=== PATIENT | male | born 1965 | race Caucasian/White ===

== ENCOUNTER 2020-09-24 02:36 | Observation (INO) | payer BC, SELFPAY ==
[2020-09-24] VITALS (28 sets, daily range): BP systolic 105–139; BP diastolic 69–93; PULSE 69–93; RESP 14–18; TEMP -17.7–36.7; O2SAT 94–99; BMI 22.4
--- NOTE | 2020-09-24 | IR_ITS ---
APPROVED REPORT Patient Location: [facility] Computer [employer] Software Architect: SCOTT Merlos RT (R) PROCEDURES Left heart catheterization Left ventriculogram Selective coronary angiogram Drug-eluting stent deployment into the left main artery Drug-eluting stent deployment in the proximal and mid LAD INDICATION Acute anterior ST elevation myocardial infarction, Coronary artery disease Informed consent was obtained prior to the procedure. COMPLICATIONS none Estimated Blood Loss: less than 10 mls TECHNIQUE One percent lidocaine used to anesthetize the right anterior aspect of the wrist. The right radial artery was accessed via the Seldinger technique. A 6 [place] sheath was placed in the right radial artery. 2.5 mg of verapamil, 800 mcg of nitroglycerin, 1mg Lidocaine and therapeutic Heparin were given through the arterial sheath. Patient was actually loaded in the emergency department with therapeutic heparin as well as Brilinta 180 mg. The Poppa catheter was used to perform left heart catheterization left ventriculogram and selective coronary angiogram. With the catheter in the left main artery a Choice PT extra-support wire was used to traverse the stenosis in the distal left main artery. A 3 mm x 20 mm balloon was used to predilate the stenosis. Following this a 3 mm x 18 mm resolute ebenezer stent was placed in the proximal left main extending into the proximal portion of the LAD and deployed initially at 20 desean. Following this a 3 mm x 38 mm resolute Ebenezer stent was then placed through the proximal to mid LAD and deployed at 16 desean. The balloon was brought back and deployed at 24 desean in the left main artery and proximal LAD. ARIK-3 flow was present before and after the procedure. After achieving excellent angiographic results the apparatus was removed the sheath was removed good hemostasis was achieved using TR banding patient was transferred to the postop holding area in stable condition ANGIOGRAPHIC RESULTS The left main artery Has a distal highly eccentric greater than 90% stenosis The left anterior descending artery Has an ostial greater than 90% stenosis followed by proximal multiple 70% stenoses. The circumflex artery Is nondominant and has proximal 10 to 20% smooth stenosis The right coronary artery Is a large dominant vessel and has proximal hazy 30 to 40% stenoses with distal and diffuse 30% stenoses through the mid and distal segment. The LOERA ventriculogram reveals Reduced at 45% with anterior wall hypokinesis The left ventricular end-diastolic pressure 20 mmHg IMPRESSION Critical distal left main stenosis combined with ostial and proximal LAD stenosis as described above Successful reconstruction of a critically diseased distal left main artery extending into the LAD with all lesions reduced to 0% with 2 drug-eluting stents in a contiguous manner Reduced ejection fraction with regional wall motion abnormality which is most likely stunning and should improve over time Elevated LVEDP Moderate diffuse disease throughout the large dominant right coronary PLAN 1. Brilinta 90 mg twice daily plus aspirin 81 mg daily 2. LDL of 55 to be achieved with high intensity statin. Will start Lipitor 80 mg daily 3. Once hemodynamically stable low-dose bisoprolol plus DOMINGA inhibitor 4. Avoidance of all tobacco products 5. Cardiac rehabilitation 6. Monitor on telemetry Electronically signed by : Frankie Norton, 09/24/2020 04:02:04
--- NOTE | 2020-09-24 02:28 | ECG_ITS ---
APPROVED REPORT Exam: Resting ECG HR:88 bpm ECG Measurements Heart Rate 88 AXES WI 166 P 62 QRSd 94 QRS 30 QT 384 T -38 QTc 464 Conclusion Sinus rhythm with premature atrial complexes Septal infarct, age undetermined Marked ST abnormality, possible inferior subendocardial injury Abnormal ECG Electronically signed by : Duke Watkins, 09/25/2020 19:57:59
--- NOTE | 2020-09-24 02:39 | HMH.EDCP ---
ED Disposition Clinical Impression: Hypokalemia ST elevation myocardial infarction (STEMI) Qualifiers: Involved coronary artery: unspecified coronary artery Qualified Code(s): I21.3 - ST elevation (STEMI) myocardial infarction of unspecified site Disposition: Admitted As Inpatient Condition on Discharge: Critical - Critical Care Critical Care Time: No Attestation: On , the high probability of a clinically significant, sudden or life threatening deterioration of the following system(s) required my full and direct attention, intervention and personal management. The time I documented below is in addition to time spent performing reported procedures but includes the following listed in this critical care notation. Medical Decision Making - Medical Records Medical records reviewed: Yes: I reviewed the patient's medical records. - Stephen Inquiry Pt receiving controlled substance: No Vital Signs: 09/24/20 02:36 Pulse Rate [Left Radial] 71 Respiratory Rate 16 Blood Pressure [Right Arm] 122/86 Blood Pressure Mean [Right Arm] 98 Blood Pressure Source [Right Arm] Automatic Cuff Blood Pressure Position [Right Arm] Sitting 02 Sat by Pulse Oximetry 99 Oxygen Delivery Method Room Air - Lab Data Lab results reviewed: Yes: I reviewed the patient's lab results. Lab Results 09/24/20 02:40: WBC 13.5 H, RBC 5.54, Hgb 16.0, Hct 48.2, MCV 87.0, MCH 29.0, MCHC 33.3, RDW 13.5, Plt Count 236, MPV 9.4, Neut % (Auto) 45.3, Lymph % (Auto) 44.6, [place] % (Auto) 6.6, Eos % (Auto) 2.8, Baso % (Auto) 0.8, Neut # (Auto) 6.1, Lymph # (Auto) 6.0 H, [place] # (Auto) 0.9, Eos # (Auto) 0.4, Baso # (Auto) 0.1 09/24/20 02:40: Sodium 140, Potassium 2.8 L*, Chloride 101, Carbon Dioxide 29, Anion Gap 12.8, BUN 21 H, Creatinine 1.20, Estimated Creat Clear 78, Estimated GFR 63, Est GFR ( Amer) 76, Glucose 121 H, Calcium 9.2, Troponin I < 0.01, NT-Pro-B Natriuret Pep 32.9 Result diagrams: 09/24/20 02:40 09/24/20 02:40 Orders (Tests/Meds): ED MEDICATIONS Discontinued Medications Generic Name Dose Route Start Last Admin Trade Name Kameron PRN Reason Stop Dose Admin Aspirin 324 mg 09/24/20 02:42 09/24/20 02:49 Aspirin 81mg Chewable Tablet PO 09/24/20 02:43 324 mg ONCE ONE Administration Heparin Sodium (Porcine) 7,900 unit 09/24/20 02:42 09/24/20 02:48 Heparin Sodium 5,000 Unit/Ml Vial 100 unit/kg (7900 unit) 09/24/20 02:43 7,900 unit IV Administration ONCE ONE Ticagrelor 180 mg 09/24/20 02:42 09/24/20 02:49 Ticagrelor 90mg Tablet PO 09/24/20 02:43 180 mg ONCE ONE Administration ORDERS Category Date Time Status Chest XR -- portable [XR chest portable] Stat Exams 09/24/20 02:40 Taken Covid-19 IgG/IgM ([facility]) Stat Lab 09/24/20 02:40 Received Troponin I Q3H Lab 09/24/20 05:45 Ordered Troponin I Q3H Lab 09/24/20 08:45 Ordered - Radiology Data #1 Image(s): Chest Image Reviewed: Yes I reviewed the patient's radiology image Preliminary Findings: Normal/NAD - ECG Data Tracing #1 Normal Sinus Rhythm: Yes Ischemic changes: acute STEMI, ST elevation - Physician Consults Physician Consulted: cedric Reason -: Pt condition Additional Consult: tamara Reason -: Admission Chest Pain HPI - General Chief Complaint: Chest Pain Stated Complaint: CHEST PAIN Time Seen by Provider: 09/24/20 02:40 Mode of Arrival: Wheelchair Source of Information: Patient, Spouse, Medical Record Limitations: No Limitations Description of Symptoms (Recalled from ER Triage Doc. by RN): PT ASSISTED OUT OF CAR BY STAFF. PT COMPLAINS OF CHEST PAIN FOR THE LAST FEW HOURS THAT RADIATES DOWN HIS LEFT ARM. 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
--- NOTE | 2020-09-24 02:40 | XR_ITS ---
PROCEDURE: XR CHEST PORTABLE CLINICAL HISTORY: chest pain COMPARISON: No exams were available for comparison FINDINGS: Mild cardiomegaly without failure. The lungs are clear without infiltrates, suspicious nodules, or pleural effusions. No acute bony abnormalities. IMPRESSION: Mild cardiomegaly negative Dictated by: Ayad Genao MD 09/24/2020 05:31 Ayad Genao MD in OV 09/24/2020 05:31
--- NOTE | 2020-09-24 02:42 | PC.NURSE ---
[id number] STEMI alert called. cedric paged
--- NOTE | 2020-09-24 02:45 | PC.NURSE ---
cath team paged
--- NOTE | 2020-09-24 02:46 | PC.NURSE ---
consent obtained, signed per
--- NOTE | 2020-09-24 02:50 | PC.NURSE ---
pt to laboratory worker via engine house helper and social media assistant; on monitor/pads; called and spoke with gui, changed to anabelle
[2020-09-24 03:17] LABS: Anion Gap 12.8 mEq/L (5-15); Blood Urea Nitrogen 21 mg/dl (9-20); Calcium 9.2 mg/dl (8.4-10.2); Carbon Dioxide 29 mmol/L (22.0-30.0); Chloride 101 mmol/L (98-107); Creatinine Clearance Estimated 78 mL/min (50-200); Estimated Glomerular Filt Rate 63 ml/min (>60); GFR (African American) 76 ML/MIN (>60); Glucose 121 mg/dl (74-100); Sodium 140 mmol/L (136-145)
[2020-09-24 03:19] LABS: Potassium 2.8 mmoL/L (3.5-5.1)
--- NOTE | 2020-09-24 03:19 | PC.NURSE ---
K+ 2.[address] Stack
[2020-09-24 03:23] LABS: Basophils # 0.1 K/mm3 (0-0.2); Basophils % 0.8 % (0.1-2.0); Eosinophils # 0.4 K/mm3 (0.0-0.4); Eosinophils % 2.8 % (0.1-12.0); Hematocrit 48.2 % (42.0-52.0); Lymphocytes % 44.6 % (10-50); Mean Corpuscular HGB Conc 33.3 g/dL (31.8-35.4); Mean Platelet Volume 9.4 fl (7.4-10.4); Monocytes # 0.9 K/mm3 (0.1-1.0); Monocytes % 6.6 % (1.7-9.3); Neutrophils # 6.1 K/mm3 (1.8-7.8); Neutrophils % 45.3 % (37.0-80.0); Platelet Count 236 K/mm3 (142-424); Red Blood Count 5.54 M/mm3 (4.60-6.20); Red Cell Distribution Width 13.5 % (11.5-17.5); White Blood Count 13.5 K/mm3 (4.8-10.8)
[2020-09-24 03:29] LABS: NT Pro Brain Natriuretic Pep. 32.9 pg/mL (0-125); Troponin I < 0.01 ng/ml (0.00-0.034)
[2020-09-24 03:35] LABS: Coronavirus 19 IgG Antibody Negative (Negative); Coronavirus 19 IgM Antibody Negative (Negative)
[2020-09-24 04:02] LABS: CATHL Activated Clotting Time > 400 SEC (74-125)
--- NOTE | 2020-09-24 04:37 | PC.NURSE ---
PT ARRIVED TO THE FLOOR VIA STRETCHER FROM FINISHING MACHINE TENDER WITH STAFF AT [id number]
--- NOTE | 2020-09-24 06:55 | PC.NURSE ---
Pt has been resting in bed. Tracelet remains in place. No hematoma noted. Has tolerated well. Pt has c/o some slight discomfort to chest x1 since arrival to floor. Education given on reperfusion. VSS at this time. Pt has used urinal. Call light within reach. Family at bedside. No other concerns at this time. Will continue to monitor.
[2020-09-24 07:04] LABS: Basophils # 0.1 K/mm3 (0-0.2); Basophils % 0.4 % (0.1-2.0); Eosinophils # 0.1 K/mm3 (0.0-0.4); Eosinophils % 0.9 % (0.1-12.0); Hematocrit 47.2 % (42.0-52.0); Hemoglobin 15.8 g/dL (14.1-18.0); Lymphocytes # 2.1 K/mm3 (0.7-4.5); Mean Corpuscular HGB Conc 33.4 g/dL (31.8-35.4); Mean Corpuscular Hemoglobin 29.3 pg (27.0-31.2); Mean Corpuscular Volume 87.7 fl (80-94); Mean Platelet Volume 9.4 fl (7.4-10.4); Monocytes # 0.5 K/mm3 (0.1-1.0); Neutrophils # 9.4 K/mm3 (1.8-7.8); Neutrophils % 77.7 % (37.0-80.0); Platelet Count 190 K/mm3 (142-424); Red Blood Count 5.38 M/mm3 (4.60-6.20); Red Cell Distribution Width 13.5 % (11.5-17.5); White Blood Count 12.1 K/mm3 (4.8-10.8)
[2020-09-24 07:10] LABS: Chloride 104 mmol/L (98-107); Sodium 139 mmol/L (136-145)
[2020-09-24 07:11] LABS: Potassium 3.9 mmoL/L (3.5-5.1)
[2020-09-24 07:13] LABS: Anion Gap 9.9 mEq/L (5-15); Blood Urea Nitrogen 20 mg/dl (9-20); Carbon Dioxide 29 mmol/L (22.0-30.0); Creatinine Clearance Estimated 94 mL/min (50-200); Estimated Glomerular Filt Rate 78 ml/min (>60); GFR (African American) 94 ML/MIN (>60)
[2020-09-24 07:14] LABS: Calcium 9.3 mg/dl (8.4-10.2); Chol/HDL Ratio 6.4 (1-3.5); Cholesterol 237 mg/dl (140-200); Glucose 110 mg/dl (74-100); HDL Cholesterol 37 mg/dl (40-60); Magnesium 2.1 mg/dl (1.6-2.3); Triglycerides 86 mg/dl (30-150); VLDL Cholesterol 17 mg/dL (0-40)
[2020-09-24 07:25] LABS: Direct LDL Cholesterol 152.62 mg/dL (100-129)
--- NOTE | 2020-09-24 09:18 | HMH.HP ---
*Admission Date: 09/24/20 *Chief complaint: chest pain *History of present illness: Mr. Goodwin is a 55-year-old relatively healthy male who states he has had indigestion for the past few months. His states he did complain about chest pain a few weeks ago, but it resolved on its own. At 2 AM last night he began having indigestion. He took some Tums and it did not improve. He then began having left-sided chest pain that radiated down his left arm. The pain was steady and he became weak and diaphoretic. He states he was nauseated as well. His tried to get into the car and he fell down a few times. She managed to get him in the car and transported to the emergency room where he was evaluated and was having a STEMI. He was taken emergently to the [facility] and 2 stents were placed. The patient is feeling much better this morning. He states he has only slight pressure at the very top of his chest. All other symptoms have resolved. [facility] History I have reviewed the patient's past medical history: Yes Medical History: Denies:: Cancer, Diabetes Mellitus Type 1, Diabetes Mellitus Type 2, MRSA *Have you ever received a pneumonia vaccine?: No *Have you received a flu vaccine this season?: Yes Laterality Cases: Bilateral: Tonsillectomy Other Surgeries: Yes: Other (vasectomy) Amputation: No - *Social History Last grade of school completed: GED Smoking Status: Former smoker Tobacco Type: cigarettes # Packs/Day (cigarettes): 1 Alcohol Intake: never *Occupational Status:: employed *Travel in the last 8 weeks: Inside the [facility] Family Hx:: Cancer, Coronary Artery Disease, Heart Attack, Hyperlipidemia, Hypertension Review of Systems - Constitutional Reports weakness, Denies fever(s) - Eyes Denies blurry vision, Denies double vision - ENT Denies nasal congestion, Denies sore throat - *Cardiovascular Reports chest pain, Reports radiating jaw, neck or arm pain, Denies shortness of breath (I have no idea always have to call and have them transfer me because it is ) - *Respiratory Denies cough, Denies shortness of breath - *Gastrointestinal Reports nausea, Denies abdominal pain, Denies loose stools, Denies vomiting - *Genitourinary Denies difficulty urinating, Denies painful urination - *Musculoskeletal Denies joint pain - *Neurologic Reports weakness, Denies headache(s), Denies seizure-like activity, Denies dizziness Meds Home Medications Medication Instructions Recorded Confirmed Type No Known Home Medications 09/24/20 09/24/20 History Allergies Allergy/AdvReac Type Severity Reaction Status Date / Time No Known Allergies Allergy Verified 09/24/20 02:39 Exam Vital signs and Labs for Last 24 Hours: Temp Pulse Resp BP Pulse Ox 97.7 F 76 16 135/84 98 09/24/20 06:05 09/24/20 07:05 09/24/20 07:05 09/24/20 07:05 09/24/20 07:05 Laboratory Results - last 24 hr 09/24/20 02:40: WBC 13.5 H, RBC 5.54, Hgb 16.0, Hct 48.2, MCV 87.0, MCH 29.0, MCHC 33.3, RDW 13.5, Plt Count 236, MPV 9.4, Neut % (Auto) 45.3, Lymph % (Auto) 44.6, [place] % (Auto) 6.6, Eos % (Auto) 2.8, Baso % (Auto) 0.8, Neut # (Auto) 6.1, Lymph # (Auto) 6.0 H, [place] # (Auto) 0.9, Eos # (Auto) 0.4, Baso # (Auto) 0.1 09/24/20 02:40: Sodium 140, Potassium 2.8 L*, Chloride 101, Carbon Dioxide 29, Anion Gap 12.8, BUN 21 H, Creatinine 1.20, Estimated Creat Clear 78, Estimated GFR 63, Est GFR ( Amer) 76, Glucose 121 H, Calcium 9.2, Troponin I < 0.01, NT-Pro-B Natriuret Pep 32.9 09/24/20 02:40: SARS-CoV-2 IgG Ab (Rapid) Negative, SARS-CoV-2 IgM Ab (Rapid) Negative 09/24/20 03:27: Activated Clotting Time > 400 H* 09/24/20 06:40: WBC 12.1 H, RBC 5.38, Hgb 15.8, Hct 47.2, MCV 87.7, MCH 29.3, MCHC 33.4, RDW 13.5, Plt Count 190, MPV 9.4, Neut % (Auto) 77.7, Lymph % (Auto) 17.0, [place] % (Auto) 4.0, Eos % (Auto) 0.9, Baso % (Auto) 0.4, Neut # (Auto) 9.4 H, Lymph # (Auto) 2.1, [place] # (Auto) 0.5, Eos # (Auto) 0.1, Baso # (Auto) 0.1 09/24/
--- NOTE | 2020-09-24 12:34 | HMH.PHAVTE ---
[facility] Pharmacy VTE Monitoring - Patient Demographics Admission date: 09/24/20 Report Date: 09/24/20 Time: 12:34 Allergies/Adverse Reactions: Patient Allergies No Known Allergies Allergy (Verified 09/24/20 02:39) Height: 1.88 m Weight: 79.379 kg Patient Problems: Current Active Problems ST elevation myocardial infarction (STEMI) (Acute) Hypokalemia (Acute) - VTE Risk Labs: VTE Related Lab Results Hgb 15.8 g/dL (14.1-18.0) 09/24/20 06:40 Hct 47.2 % (42.0-52.0) 09/24/20 06:40 Plt Count 190 K/mm3 (142-424) 09/24/20 06:40 BUN 20 mg/dl (9-20) 09/24/20 06:40 Creatinine 1.00 mg/dl (0.66-1.25) 09/24/20 06:40 Estimated Creat Clear 94 mL/min (50-200) 09/24/20 06:40 Was VTE Risk Assessment Performed: Yes VTE Score: 2 VTE Risk Level: Low Risk - Prophylaxis VTE Prophylaxis Ordered?: Yes Types of VTE Prophylaxis: TEDS Knee High Location of Applied Device: Bilateral Lower Extremeties
--- NOTE | 2020-09-24 19:40 | PC.NURSE ---
patient did well this shift. has had no complaints besides ocassional chest discomfort that goes away. telfa and tegaderm applied to cath site with no signs of bleeding or hematomas. educated on brilinta and post cath care. first 30 days of brilinta given to patient to take home. vitals have been stable. ambulates in room independently.
[2020-09-25] VITALS (13 sets, daily range): BP systolic 115–159; BP diastolic 73–99; PULSE 70–88; RESP 13–19; TEMP 36.4–37.3; O2SAT 95–98; BMI 23.3
--- NOTE | 2020-09-25 04:12 | PC.NURSE ---
Patient resting at this time. Has had no complaints of pain or shortness of air. ALert and orientd x4. Standby assistance to the bathroom. Normal sinus rhythm rate 70-80s and blood pressure stable . Had heart cath today. Two stents to the proximal LAD, right radial site with no signs of hematoma or bleeding. Dressing CDI. Pulses good and capillary refill brisk. Lungs clear on room air, no cough noted. Skin intact except for right radial No edema noted, day hose on bilateral LE. Patient instructed to call for assistance. Call light within reach.
--- NOTE | 2020-09-25 10:55 | HMH.ACPN2 ---
Internal Medicine - PN: Subj *Date: 09/25/20 *Time: 10:55 Interval history: He feels okay. He reports some mild chest pain. I listen to his chest as he was coming back from the bathroom. Heart rate was regular. I heard some left basilar rales. I spoke to Dr. Norton regarding distal medications. We will initiate bisoprolol and ramipril at a low dose. I would prefer to watch him today and plan to discharge him tomorrow if he is stable. Exam Vital signs and Labs for Last 24 Hours: Temp Pulse Resp BP Pulse Ox 98.2 F 72 16 115/73 96 09/25/20 08:00 09/25/20 06:00 09/25/20 06:00 09/25/20 06:00 09/25/20 06:00 I & O for Last 24 hours: Intake & Output 09/22/20 09/23/20 09/24/20 09/25/20 11:59 11:59 11:59 11:59 Intake Total 3981 / 3981 Output Total 675 / 675 750 / 750 Balance -675 / -675 3231 / 3231 Weight 175 lb 181 lb 6 oz - Constitutional no acute distress - *Routine HEENT Exam Head: Present: normocephalic Eye: Present: PERRL ENT: Present: mucous membranes moist - *Routine Neck Exam Absent: JVD - Routine Chest/Breast/Axilla Exam Chest wall: Absent: tenderness - *Routine Respiratory Exam Present: rales (Right basilar rales, otherwise clear) - *Routine Cardiovascular Exam Present: RRR - *Routine Extremities Exam Present: edema (Minimal) - *Routine Neurological Exam Present: alert, oriented X3 Assessment and Plan (1) ST elevation myocardial infarction (STEMI) Status: Acute Qualifiers: Involved coronary artery: unspecified coronary artery Qualified Code(s): I21.3 - ST elevation (STEMI) myocardial infarction of unspecified site Category: Medical Code(s): I21.3 - ST elevation (STEMI) myocardial infarction of unspecified site (2) Hypokalemia Status: Acute Category: Medical Code(s): E87.6 - Hypokalemia - Assessment and plan all Dx Assessment and Plan for all problems:: Ramipril 2.5 mg, bisoprolol 2.5 mg
--- NOTE | 2020-09-25 18:42 | PC.NURSE ---
End of shift note. Patient has had a great day. No complications. No complaints. His right wrist remains CDI with no trace of bleeding. Patients blood pressure has been stable. Heart rate has been stable running between 70-80's. He was able to ambulate to the bathroom and completed a full shower today independently. Patient remains a/o x4. He remains on RA. Patient is now using the toilet for voiding. Patients TEDS are on bilaterally. Patient has NS @ 100 ml/hr.
[2020-09-26] VITALS: BP 151/91; PULSE 69; PULSE 70; RESP 16; TEMP 36.8; O2SAT 99
--- NOTE | 2020-09-26 00:33 | PC.NURSE ---
He is A&Ox4. He has ambulated to the bathroom with steady gait. Denies pain, nausea, weakness, and dizziness. Right radial site is now RUG CLEANER HAND. Positive radial pulses with capillary refill <3. NSR on telemetry.
[2020-09-26 02:00] VITALS: BP 144/91; PULSE 71; RESP 15; O2SAT 95
[2020-09-26 04:00] VITALS: BP 127/82; PULSE 55; PULSE 57; PULSE 60; TEMP 36.4; O2SAT 97
[2020-09-26 05:22] VITALS: BMI 22.8
[2020-09-26 06:00] VITALS: BP 119/79; PULSE 67; O2SAT 95
[2020-09-26 08:00] VITALS: BP 123/77; PULSE 68; PULSE 70; RESP 16; TEMP 36.4; O2SAT 100; O2SAT 97
--- NOTE | 2020-09-26 09:12 | HMH.ACPN2 ---
Internal Medicine - PN: Subj *Date: 09/26/20 *Time: 09:12 Interval history: The patient seems to be stable. He reports some right shoulder pain with movement. He has not been seen by cardiology yet. Presumably he will go home today. Exam Vital signs and Labs for Last 24 Hours: Temp Pulse Resp BP Pulse Ox 97.5 F L 67 15 119/79 95 09/26/20 08:00 09/26/20 06:00 09/26/20 02:00 09/26/20 06:00 09/26/20 06:00 I & O for Last 24 hours: Intake & Output 09/23/20 09/24/20 09/25/20 09/26/20 11:59 11:59 11:59 11:59 Intake Total 3981 / 3981 2697 / 2697 Output Total 675 / 675 750 / 750 450 / 450 Balance -675 / -675 3231 / 3231 2247 / 2247 Weight 175 lb 181 lb 6 oz 178 lb 7 oz - Constitutional no acute distress - *Routine HEENT Exam Eye: Present: PERRL ENT: Present: mucous membranes moist - *Routine Neck Exam Absent: JVD - Routine Chest/Breast/Axilla Exam Chest wall: Absent: tenderness - *Routine Respiratory Exam Present: CTA bilaterally - *Routine Cardiovascular Exam Present: RRR (No ectopic beats.) - *Routine Abdominal Exam Present: soft. Absent: tenderness - *Routine Extremities Exam Absent: edema Assessment and Plan (1) ST elevation myocardial infarction (STEMI) Status: Acute Qualifiers: Involved coronary artery: unspecified coronary artery Qualified Code(s): I21.3 - ST elevation (STEMI) myocardial infarction of unspecified site Category: Medical Code(s): I21.3 - ST elevation (STEMI) myocardial infarction of unspecified site (2) Hypokalemia Status: Acute Category: Medical Code(s): E87.6 - Hypokalemia - Assessment and plan all Dx Assessment and Plan for all problems:: Blood pressure is stable after introduction of ramipril and bisoprolol. He is probably ready for discharge today. Awaiting cardiology assessment.
--- NOTE | 2020-09-26 09:50 | CA_ITS ---
APPROVED REPORT EXAM: Comprehensive 2D, Doppler, and color-flow Echocardiogram Range Rider: Maite Oden RVT Ht: 6 ft 2 in Wt: 178lbs BSA: 2.07 BP: 135/84 mmHg Indications: STEMI,EX SMOKER,EF OF 45% ON CATH 2D Dimensions LVOT 2.29 cm (M/F) 1.5-2.5 M-Mode Dimensions RVDd 2.65 cm (0.9-2.6) LA Diam 3.03 cm (1.9-4.0) LVDd 3.77 cm (3.5-5.7) Ao Diam 2.89 cm (2.0-3.7) LVDs 2.70 cm (3.5-5.7) IVSd 1.14 cm (0.6-1.1) PWd 1.11 cm (0.6-1.1) EF (Teich) 55.60% FS 28.40% EDV (Teich) 60.80 mL ESV (Teich) 27.00 mL LV Diastology E Decel Time 150.00 (160-240 msec) E/A Ratio 0.9 MED E' 7.00 (< 7 cm/sec) E'/MED E' Ratio 6.71 (>14) LAT E' 5.60 (<10 cm/sec) E/LAT E' Ratio 8.39 (>14) Mitral Valve MV E Max Antonio. 47.00 (40-130 cm/s) MV A Velocity 52.00 (40-130 cm/s) E/A Ratio 0.91 MV Decel. Time 150.00 (160-240 ms) MV PHT 44.00 ms Pulmonary Valve PV Peak Velocity 64.00 (50-150 cm/s) Tricuspid Valve TR P. Velocity 237.00 cm/s Left Ventricle Left atrium is normal size, left ventricle is normal size, mild concentric left ventricular hypertrophy, visually estimated ejection fraction 50%, there is mild hypokinesis involving the mid anteroseptal wall. Grade 1 diastolic dysfunction seen without tissue Doppler evidence of raise left atrial pressure. Right Ventricle Right atrium and right ventricle are normal size and contractility. Aortic Valve Aortic valve is minimally thickened and fibrosed, there is no aortic stenosis or aortic insufficiency. Mitral Valve Mitral valve is grossly normal, there is mild mitral regurgitation. Tricuspid Valve Tricuspid valve grossly normal, there is mild tricuspid regurgitation, tricuspid regurgitation jet velocity is inadequate for calculation of the right ventricular systolic pressure. Pulmonic Valve Pulmonic valve is poorly visualized. Great Vessels Aortic root is normal size. Pericardium No significant pericardial effusion noted. Conclusion 1. Mild in the left atrium, normal left ventricular size, mild concentric left ventricular hypertrophy, visually estimated ejection fraction 50% with segmental wall motion abnormality described above, grade 1 diastolic dysfunction seen without tissue Doppler evidence of raise left atrial pressure. 2. Mild mitral and tricuspid regurgitation. 3. No significant pericardial effusion noted. Electronically signed by : Adonis Sanchez, 09/28/2020 06:28:32
--- NOTE | 2020-09-26 11:30 | PC.NURSE ---
Report given to ORLANDO Arzate RN @ this time
--- NOTE | 2020-09-26 13:08 | HMH.CNCARD ---
History of Present Illness Consult date: 09/26/20 Requesting physician: Parrish Stack Consult reason: chest pain Chief complaint: chest pain Additional Medical History:: 1. STEMI (09/25/2020) 2. Hypertension 3. Hyperlipidemia a. LDL 152. Started on Statin. 4. Elevated LVEDP History of present illness: 55 year old male presented to the ED on 09/24/2020 with STEMI. Pt stated that he had been having increase chest pain for the past few days prior to presenting to the ED. Pt stated that chest pain would not ease or resolve. Radiating down the left arm. LHC was immediately performed. Denied fever. nausea or vomiting. Upon this assessment, pt denies chest pain, tightness or pressure. Denies shortness of breath. Pt stated that he feels much better. VS stable. Cath site of right wrist healing well. No redness or swelling noted at the site. Preliminary Echo revealed EF 50-55%. LHC revealed Critical distal left main stenosis combined with ostial and proximal LAD stenosis as described above Successful reconstruction of a critically diseased distal left main artery extending into the LAD with all lesions reduced to 0% with 2 drug-eluting stents in a contiguous manner Reduced ejection fraction with regional wall motion abnormality which is most likely stunning and should improve over time Elevated LVEDP Moderate diffuse disease throughout the large dominant right coronary PLAN 1. Brilinta 90 mg twice daily plus aspirin 81 mg daily 2. LDL of 55 to be achieved with high intensity statin. Will start Lipitor 80 mg daily 3. Once hemodynamically stable low-dose bisoprolol plus DOMINGA inhibitor 4. Avoidance of all tobacco products 5. Cardiac rehabilitation 6. Monitor on telemetry Discussed plan of care with Dr. Norton. Pt may be discharged home today. Discussed the importance of taking the Brilinta and Aspirin as directed. Pt verbalized understanding. Discussed cardiac rehab. No strenous activity or heavy lifting until follow up in Cardiac clinic in one week. Pt verbalized understanding. Thank you for letting Cardiology participate in the care of this pt. [facility] History I have reviewed the patient's past medical history: Yes Medical History: Denies:: Cancer, Diabetes Mellitus Type 1, Diabetes Mellitus Type 2, MRSA *Have you ever received a pneumonia vaccine?: No *Have you received a flu vaccine this season?: Yes Laterality Cases: Bilateral: Tonsillectomy Other Surgeries: Yes: Other (vasectomy) Amputation: No - *Social History Last grade of school completed: GED Smoking Status: Former smoker Tobacco Type: cigarettes # Packs/Day (cigarettes): 1 Alcohol Intake: never *Occupational Status:: employed *Travel in the last 8 weeks: Inside the [place] Family Hx:: Cancer, Coronary Artery Disease, Heart Attack, Hyperlipidemia, Hypertension Meds Home Medications Medication Instructions Recorded Confirmed Type Aspirin [Aspirin 81mg EC Tab] 81 mg PO DAILY tablet. 09/26/20 Rx Atorvastatin Calcium [Lipitor 40mg 40 mg PO HS #30 tab 09/26/20 Rx Tablet*] Ticagrelor [Brilinta 90mg 90 mg PO BID #60 tab 09/26/20 Rx Tablet] bisoproloL fumarate [Zebeta 5mg 2.5 mg PO DAILY #30 tab 09/26/20 Rx tablet] ramipriL [Altace 2.5mg capsule] 2.5 mg PO DAILY #30 cap 09/26/20 Rx Allergies Allergy/AdvReac Type Severity Reaction Status Date / Time No Known Allergies Allergy Verified 09/24/20 02:39 Exam Vital signs and Labs for Last 24 Hours: Temp Pulse Resp BP Pulse Ox 97.5 F L 68 16 123/77 97 09/26/20 08:00 09/26/20 08:00 09/26/20 08:00 09/26/20 08:00 09/26/20 08:00 I & O for Last 24 hours: Intake & Output 09/23/20 09/24/20 09/25/20 09/26/20 23:59 23:59 23:59 23:59 Intake Total 760 / 760 5265 / 5438 653 / 653 Output Total 1425 / 1425 450 / 450 0 / 0 Balance -665 / -665 4815 / 4988 653 / 653 Weight 175 lb 181 lb 6 oz 178 lb 7 oz - Constitutional no a
--- NOTE | 2020-09-26 14:29 | PC.NURSE ---
PT IS BEING DISCHARGED HOME. FOLLOW UP WITH CARDIOLOGY. PT RECEIVED DISCHARGE EDUCATION IN HOME MEDICATIONS AND POST CATH INSTRUCTIONS. PT WAS GIVEN OUTPATIENT ORDER FORM FOR LAB WORK BEFORE FOLLOW UP APPOINTMENT 10/03 @11:00. PT WAS ASKED IF HE WANTED TO CONTINUE TO SEE FOR HIS PCP. PT STATED HE WOULD TALK IT OVER WITH HIS AND HE WOULD CALL AND MAKE HIS OWN FOLLOW UP APPOINTMENT.
--- NOTE | 2020-09-27 11:31 | HMH.DCSUM ---
General - General Admission date:: 09/24/20 Discharge date: 09/26/20 HPI HPI: Mr. Goodwin is a 55-year-old relatively healthy male who states he has had indigestion for the past few months. His states he did complain about chest pain a few weeks ago, but it resolved on its own. At 2 AM last night he began having indigestion. He took some Tums and it did not improve. He then began having left-sided chest pain that radiated down his left arm. The pain was steady and he became weak and diaphoretic. He states he was nauseated as well. His tried to get into the car and he fell down a few times. She managed to get him in the car and transported to the emergency room where he was evaluated and was having a STEMI. He was taken emergently to the [facility] and 2 stents were placed. The patient is feeling much better this morning. He states he has only slight pressure at the very top of his chest. All other symptoms have resolved. Hospital Course Hospital Course: The patient was started on Brilinta 90 mg twice daily and 81 mg aspirin daily. He was also started on Lipitor 80 mg a day. His potassium normalized. His EF was noted to be 45%. The patient complained of only some mild chest pain after his heart cath. He was initiated on bisoprolol and ramipril at low dosages. By 09/26/2020 the patient was stable. He did have some right shoulder pain with movement. His blood pressure was stable with ramipril and bisoprolol. Cardiology saw the patient and felt he could be discharged home. He will need cardiac rehab and will follow-up in the cardiac clinic in 1 week. Objective Vital signs: Temp Pulse Resp BP Pulse Ox 97.5 F L 68 16 123/77 97 09/26/20 08:00 09/26/20 08:00 09/26/20 08:00 09/26/20 08:00 09/26/20 08:00 Narrative: - Constitutional no acute distress - *Routine HEENT Exam Head: Present: normocephalic Eye: Present: EOMI, PERRL ENT: Present: mucous membranes moist - *Routine Neck Exam Present: supple. Absent: lymphadenopathy - *Routine Respiratory Exam Present: CTA bilaterally - *Routine Cardiovascular Exam Present: RRR - *Routine Abdominal Exam Present: soft, normoactive bowel sounds. Absent: tenderness - *Routine Extremities Exam Absent: cyanosis, clubbing, edema - *Routine Skin Exam Present: warm. Absent: rash - *Routine Neurological Exam Present: alert, oriented X3 DS: Diagnosis - Discharge Diagnosis (1) ST elevation myocardial infarction (STEMI) Status: Acute (2) Hypokalemia Status: Acute (3) Hyperlipidemia Status: Acute (4) Hypertension Status: Acute Discharge Plan - Patient Discharge Instructions ACTIVITY: Limited activity DIET: low fat, low cholesterol Patient Instructions: How to Care for a Surgical Wound, Heart Attack, Heart-Healthy Diet, DI for Cardiac Catheterization, DI for Hypokalemia, DI for Surgical Site Infection, Hypokalemia - Follow up Plan Follow up with: Frankie Norton MD [Staff Physician] - Unknown provider or service follow up:: 09/26/20 11:50 Needs follow up at [facility] Disposition: Home, Self-Intermediate Medications: Home Medications Medication Instructions Recorded Confirmed Type Aspirin [Aspirin 81mg EC Tab] 81 mg PO DAILY tablet. 09/26/20 Rx Atorvastatin Calcium [Lipitor 40mg 40 mg PO HS #30 tab 09/26/20 Rx Tablet*] Ticagrelor [Brilinta 90mg 90 mg PO BID #60 tab 09/26/20 Rx Tablet] bisoproloL fumarate [Zebeta 5mg 2.5 mg PO DAILY #30 tab 09/26/20 Rx tablet] ramipriL [Altace 2.5mg capsule] 2.5 mg PO DAILY #30 cap 09/26/20 Rx Prescriptions/Medication Reconciliation: New bisoproloL fumarate [Zebeta 5mg tablet] 2.5 mg PO DAILY #30 tab Aspirin [Aspirin 81mg EC Tab] 81 mg PO DAILY tablet. ramipriL [Altace 2.5mg capsule] 2.5 mg PO DAILY #30 cap Ticagrelor [Brilinta 90mg Tablet] 90 mg PO BID #60 tab Atorvastatin Calcium [Lipit
== END 2020-09-26 14:39 | disposition home or self-care (01) ==
LOC: ER 02:49 → CATHLAB 02:52 → 2ND 06:15
PROVIDERS: Internal Medicine; Admitting Provider Emergency Medicine; Emergency Provider Emergency Medicine; PCP Family Medicine; Visit Provider Family Medicine
DX: I21.02 ST elevation (STEMI) myocardial infarction involving left anterior descending coronary artery (principal); I25.10 Atherosclerotic heart disease of native coronary artery without angina pectoris; I10 Essential (primary) hypertension; Z87.891 Personal history of nicotine dependence; E78.5 Hyperlipidemia, unspecified; E87.6 Hypokalemia
CPT/HCPCS: 71045; 80048; 80061; 83735; 83880; 84484; 85025; 85347; 86328; 92928; 92941; 93005; 93306; 93458; 99152; 99153; 99203; C1725; C1769; C1876; C9600; C9606; G0378; J1644; Q9967

== ENCOUNTER → 2020-10-01 12:01 | Outpatient (CLI) | payer BC, SELFPAY ==
[2020-10-01 12:22] LABS: Hemoglobin 15.8 g/dL (14.1-18.0)
[2020-10-01 13:20] LABS: Blood Urea Nitrogen 17 mg/dl (9-20); Estimated Glomerular Filt Rate 78 ml/min (>60); GFR (African American) 94 ML/MIN (>60)
== END ==
PROVIDERS: Visit Provider Internal Medicine
DX: R07.89 Other chest pain (principal); R06.00 Dyspnea, unspecified
CPT/HCPCS: 36415; 82565; 84520; 85014; 85018

== ENCOUNTER → 2020-11-18 12:25 | Outpatient (CLI) | payer BC, SELFPAY ==
[2020-11-18 13:58] LABS: Hemoglobin A1C 5.6 % (4.0-6.0)
[2020-11-18 14:11] LABS: Alanine Aminotransferase 48 U/L (12-78); Albumin Level 4.8 g/dl (3.5-5.0); Alkaline Phosphatase 103 U/L (38-126); Anion Gap 13.9 mEq/L (5-15); Aspartate Amino Transferase 34 U/L (17-59); Bilirubin,Direct 0.2 mg/dl (0.0-0.4); Bilirubin,Indirect 0.4 mg/dL (0.0-0.9); Bilirubin,Total 0.6 mg/dl (0.2-1.3); Bilirubin,Unconjugated 0.4 mg/dL (0.0-1.1); Blood Urea Nitrogen 22 mg/dl (9-20); Calcium 10.3 mg/dl (8.4-10.2); Carbon Dioxide 34 mmol/L (22.0-30.0); Chloride 99 mmol/L (98-107); Chol/HDL Ratio 3.7 (1-3.5); Cholesterol 157 mg/dl (140-200); Estimated Glomerular Filt Rate 63 ml/min (>60); GFR (African American) 76 ML/MIN (>60); Glucose 98 mg/dl (74-100); HDL Cholesterol 42 mg/dl (40-60); Potassium 4.9 mmoL/L (3.5-5.1); Sodium 142 mmol/L (136-145); Total Protein,Serum 8.3 g/dl (6.3-8.2); Triglycerides 115 mg/dl (30-150); VLDL Cholesterol 23 mg/dL (0-40)
[2020-11-18 14:23] LABS: Direct LDL Cholesterol 81.76 mg/dL (100-129)
== END ==
PROVIDERS: Visit Provider Physician Assistant
DX: R07.89 Other chest pain (principal); R06.00 Dyspnea, unspecified; R73.03 Prediabetes; I25.118 Atherosclerotic heart disease of native coronary artery with other forms of angina pectoris; E78.5 Hyperlipidemia, unspecified; I10 Essential (primary) hypertension; K21.9 Gastro-esophageal reflux disease without esophagitis; R94.31 Abnormal electrocardiogram [ECG] [EKG]; I11.9 Hypertensive heart disease without heart failure
CPT/HCPCS: 36415; 80048; 80061; 80076; 83036

== ENCOUNTER → 2022-03-19 12:10 | Outpatient (CLI) | payer BC, SELFPAY ==
[2022-03-19 13:35] LABS: Alanine Aminotransferase 41 U/L (12-78); Albumin Level 4.7 g/dl (3.5-5.0); Alkaline Phosphatase 89 U/L (38-126); Aspartate Amino Transferase 40 U/L (17-59); Bilirubin,Direct 0.2 mg/dl (0.0-0.4); Bilirubin,Indirect 0.4 mg/dL (0.0-0.9); Bilirubin,Total 0.6 mg/dl (0.2-1.3); Bilirubin,Unconjugated 0.4 mg/dL (0.0-1.1); Chol/HDL Ratio 3.5 (1-3.5); Cholesterol 149 mg/dl (140-200); HDL Cholesterol 42 mg/dl (40-60); Total Protein,Serum 7.9 g/dl (6.3-8.2); Triglycerides 104 mg/dl (30-150); VLDL Cholesterol 21 mg/dL (0-40)
[2022-03-19 13:46] LABS: Direct LDL Cholesterol 80.93 mg/dL (100-129)
== END ==
PROVIDERS: PCP Family Medicine; Visit Provider Internal Medicine Cardiovascular Disease
DX: I25.118 Atherosclerotic heart disease of native coronary artery with other forms of angina pectoris (principal); I10 Essential (primary) hypertension; E78.5 Hyperlipidemia, unspecified; K21.9 Gastro-esophageal reflux disease without esophagitis; R94.31 Abnormal electrocardiogram [ECG] [EKG]; Z95.5 Presence of coronary angioplasty implant and graft
CPT/HCPCS: 36415; 80061; 80076

== ENCOUNTER → 2022-12-07 07:15 | Outpatient (CLI) | payer BC, SELFPAY ==
--- NOTE | 2022-12-07 07:16 | NM_ITS ---
APPROVED REPORT Exam: Nuclear Stress Test Indication: chest pain Patient Location: Outpatient Stress Tech: Yessenia Gonsalez [place] Tech:SCOTT Harris RT(R)(N) Ht: 6 ft 0 in Wt: 186 lbs HR: 74 bpm BP: 154/84 mmHg BSA: 2.07 m2 TID: 0.97 History: chest pain Procedure: Patient received 0.4 mg of intravenous Lexiscan, resting heart rate 74 bpm, resting blood pressure 154/84 mmHg, with Lexiscan maximum heart rate achieved was 95 bpm which is Less than 85 % of the maximum predicted heart rate and blood pressure was 158/80 mmHg. With Lexiscan, patient denied any complaint of chest pain. Electrocardiogram Resting electrocardiogram shows sinus rhythm, with Lexiscan there is less than 1.[address] segment depression noted from the baseline EKG. The EKG portion of the Lexiscan is nondiagnostic. Cardiac Stress and Resting SPECT Images: Cardiac Stress and Resting SPECT images were obtained using technetium 99m Myoview 32.5 mCi stress and 10.68 mCi at rest. Gated SPECT analysis of segmental wall motion and calculation of the ejection fraction also done. Prone images were also obtained. Cardiac stress and rest SPECT images show uniform myocardial activity without segmental perfusion abnormality, computer derived ejection fraction is 57% with no regional wall motion abnormality, right ventricle is normal size and contractility. Conclusion: 1. The EKG portion of the Lexiscan is nondiagnostic. 2. No scintigraphic evidence of reversible ischemia seen, computer derived ejection fraction 57% with no regional wall motion abnormality, right ventricle is normal size and contractility. 3. Normal Lexiscan Myoview study. Electronically signed by : Adonis Sanchez MD 12/07/2022 13:29:27
--- NOTE | 2022-12-07 07:31 | CA_ITS ---
APPROVED REPORT EXAM: Comprehensive 2D, Doppler, and color-flow Echocardiogram [employer] Specialist: Reena Fernandes RT(R) Ht: 6 ft 0 in Wt: 186lbs BSA: 2.07 BP: 118/68 mmHg Indications: CP, ex smoker, HTN, hyperlipidemia, GERD, CAD, Abn EKG 2D Dimensions LVOT 1.94 cm (M/F) 1.5-2.5 LVEF (Kwok's) 55.30 % M: 52 - 72 LV Volume 86.40 mL M: 62 - 150 LV Volume Index 41.74 mL/m2 M: 34 - 74 LA Volume 34.10 mL LA Volume Index 16.47 mL/m2 (M/F) 16-34 M-Mode Dimensions RVDd 2.93 cm (0.9-2.6) LA Diam 3.73 cm (1.9-4.0) LVDd 4.36 cm (3.5-5.7) Ao Diam 2.55 cm (2.0-3.7) LVDs 3.40 cm (3.5-5.7) IVSd 0.79 cm (0.6-1.1) PWd 0.75 cm (0.6-1.1) EF (Teich) 44.80% FS 22.00% EDV (Teich) 85.80 mL ESV (Teich) 47.40 mL LV Diastology E Decel Time 227.00 (160-240 msec) E/A Ratio 1.1 MED E' 9.70 (< 7 cm/sec) E'/MED E' Ratio 7.30 (>14) LAT E' 10.20 (<10 cm/sec) E/LAT E' Ratio 6.94 (>14) Mitral Valve MV E Max Antonio. 71.00 (40-130 cm/s) MV A Velocity 63.00 (40-130 cm/s) E/A Ratio 1.13 MV Decel. Time 227.00 (160-240 ms) MV PHT 66.00 ms Left Ventricle Left atrium normal size left ventricle is normal size there is no concentric left ventricular hypertrophy, estimated ejection fraction 55% with no regional wall motion abnormality. Diastolic parameters are within normal range. Right Ventricle Right atrium and right ventricle are normal size and contractility. Aortic Valve Aortic valve is minimally thickened and fibrosed there is no aortic stenosis aortic insufficiency. Mitral Valve Mitral valve is grossly normal, there is no mitral regurgitation. Tricuspid Valve Tricuspid valve grossly normal, there is no tricuspid regurgitation. Pulmonic Valve Pulmonic valve is poorly visualized. Great Vessels Aortic root is normal size. Inferior vena cava is normal size with normal inspiratory collapse. Pericardium No significant pericardial effusion noted. Conclusion 1. Normal left ventricular size preserved left ventricular systolic function, estimated ejection fraction 55% with no regional wall motion abnormality, diastolic parameters are within normal range. 2. No significant pericardial effusion noted. 3. Inferior vena cava is normal size with normal inspiratory collapse. Electronically signed by : Adonis Sanchez MD 12/07/2022 12:36:09
--- NOTE | 2022-12-07 08:18 | CA_ITS ---
APPROVED REPORT Exam: Pharmacologic Technologist: Yessenia Garcia, Ht: 6 ft 0 in Wt: 182 lbs BSA: 2.05 m2 HR: 60 bpm BP: 154/84 mmHg Medical History Medications: Aspirin,,,,, Atorvastatin,,,,, Ramipril,,,,, Plavix,,,,, BisOPROLOL Fumarate,,,,, Stress Test Details Test: LEXISCAN Reason for pharmacologic stress test: physical limitation. HR Resting HR: 74 bpm Max Heart Rate (APMHR): 163.669376 bpm Max HR Achieved: 95 bpm Target HR (85% APMHR): 138.008042 bpm % of APMHR: 58.28 Recovery HR: 80 bpm BP Resting BP: 154.0/84.0 mmHg Max BP: 158.0/80.0 mmHg Recovery BP: 136.0/93.0 mmHg ECG Clinical Exercise duration: 04:02 min Highest Stage Achieved: Stress ECG Conclusion Symptoms: Dizziness Arrhythmias/Ectopy: Rare PAC/PVC ST-T Changes: <1.5mm ST changes Test Summary REST . . . . . . . Resting REST 06:29 . . 74 . 154/ 84 . . Stage 1 01:00 . . 88 . . . . Stage 2 01:00 . . 86 . 158/ 80 . . Stage 3 01:00 . . 91 . 158/ 80 . . Stage 4 01:00 . . 76 . 132/ 88 . . Stage 4 01:02 . . 75 . 132/ 88 . Stop exercise at 04:02 RECOVERY 01:00 . . 79 . . . . RECOVERY 01:53 . . 74 . 136/ 93 . . Electronically signed by : Adonis Sanchez MD 12/07/2022 13:13:03
== END ==
LOC: RAD 07:16
PROVIDERS: PCP Family Medicine; Visit Provider Internal Medicine Cardiovascular Disease
DX: I25.118 Atherosclerotic heart disease of native coronary artery with other forms of angina pectoris (principal); E78.5 Hyperlipidemia, unspecified; I10 Essential (primary) hypertension; R94.31 Abnormal electrocardiogram [ECG] [EKG]; Z95.5 Presence of coronary angioplasty implant and graft
CPT/HCPCS: 78452; 93017; 93306; A9502; J2785

== ENCOUNTER → 2023-06-13 15:36 | Outpatient (CLI) | payer BC, SELFPAY ==
[2023-06-13 16:33] LABS: Basophils % 0.5 % (0.1-2.0); Eosinophils # 0.1 K/mm3 (0.0-0.4); Eosinophils % 1.4 % (0.1-12.0); Hematocrit 42.9 % (42.0-52.0); Hemoglobin 14.6 g/dL (14.1-18.0); Lymphocytes # 2.1 K/mm3 (0.7-4.5); Lymphocytes % 26.7 % (10-50); Mean Corpuscular Hemoglobin 29.2 pg (27.0-31.2); Mean Corpuscular Volume 86.1 fl (80-94); Mean Platelet Volume 9.1 fl (7.4-10.4); Monocytes # 0.5 K/mm3 (0.1-1.0); Monocytes % 5.9 % (1.7-9.3); Neutrophils # 5.1 K/mm3 (1.8-7.8); Neutrophils % 65.5 % (37.0-80.0); Platelet Count 150 K/mm3 (142-424); Red Blood Count 4.98 M/mm3 (4.60-6.20); Red Cell Distribution Width 13.3 % (11.5-17.5); White Blood Count 7.8 K/mm3 (4.8-10.8)
[2023-06-13 17:12] LABS: Alanine Aminotransferase 34 U/L (12-78); Albumin Level 4.1 g/dl (3.5-5.0); Alkaline Phosphatase 88 U/L (38-126); Anion Gap 13.4 mEq/L (5-15); Aspartate Amino Transferase 30 U/L (17-59); Bilirubin,Indirect 0.2 mg/dL (0.0-0.9); Bilirubin,Total 0.2 mg/dl (0.2-1.3); Bilirubin,Unconjugated 0.4 mg/dL (0.0-1.1); Blood Urea Nitrogen 22 mg/dl (9-20); Carbon Dioxide 30 mmol/L (22.0-30.0); Chloride 103 mmol/L (98-107); Chol/HDL Ratio 4.3 (1-3.5); Cholesterol 133 mg/dl (140-200); Estimated Glomerular Filt Rate 62 ml/min (>60); GFR (African American) 75 ML/MIN (>60); Glucose 99 mg/dl (74-100); HDL Cholesterol 31 mg/dl (40-60); Magnesium 1.8 mg/dl (1.6-2.3); Potassium 4.4 mmoL/L (3.5-5.1); Sodium 142 mmol/L (136-145); Total Protein,Serum 7.2 g/dl (6.3-8.2); Triglycerides 156 mg/dl (30-150); VLDL Cholesterol 31 mg/dL (0-40)
[2023-06-13 17:23] LABS: Direct LDL Cholesterol 63.66 mg/dL (100-129)
[2023-06-13 17:26] LABS: Free T4 (Free Thyroxine) 0.69 ng/dl (0.78-2.19)
[2023-06-13 17:46] LABS: Thyroid Stimulating Hormone 1.24 uIU/mL (0.465-4.68)
== END ==
PROVIDERS: PCP Family Medicine; Visit Provider Physician Assistant
DX: I25.10 Atherosclerotic heart disease of native coronary artery without angina pectoris (principal); I10 Essential (primary) hypertension; E78.5 Hyperlipidemia, unspecified; R94.31 Abnormal electrocardiogram [ECG] [EKG]; Z95.5 Presence of coronary angioplasty implant and graft
CPT/HCPCS: 36415; 80048; 80061; 80076; 83735; 84439; 84443; 85025

== ENCOUNTER 2023-12-19 16:26 | Outpatient (CLI) | payer BC, SELFPAY ==
[2023-12-19 16:59] LABS: Basophils # 0.1 K/mm3 (0-0.2); Basophils % 1.1 % (0.1-2.0); Eosinophils # 0.1 K/mm3 (0.0-0.4); Eosinophils % 1.9 % (0.1-12.0); Hematocrit 48.1 % (42.0-52.0); Hemoglobin 15.7 g/dL (14.1-18.0); Lymphocytes # 2.1 K/mm3 (0.7-4.5); Lymphocytes % 26.9 % (10-50); Mean Corpuscular HGB Conc 32.7 g/dL (31.8-35.4); Mean Corpuscular Hemoglobin 29.4 pg (27.0-31.2); Mean Corpuscular Volume 89.9 fl (80-94); Mean Platelet Volume 8.9 fl (7.4-10.4); Monocytes # 0.5 K/mm3 (0.1-1.0); Monocytes % 6.2 % (1.7-9.3); Neutrophils # 4.9 K/mm3 (1.8-7.8); Neutrophils % 63.9 % (37.0-80.0); Platelet Count 170 K/mm3 (142-424); Red Blood Count 5.35 M/mm3 (4.60-6.20); Red Cell Distribution Width 13.4 % (11.5-17.5); White Blood Count 7.6 K/mm3 (4.8-10.8)
[2023-12-19 17:38] LABS: Alanine Aminotransferase 42 U/L (12-78); Albumin Level 4.2 g/dl (3.5-5.0); Alkaline Phosphatase 96 U/L (38-126); Anion Gap 7.4 mEq/L (5-15); Aspartate Amino Transferase 34 U/L (17-59); Bilirubin,Direct 0.2 mg/dl (0.0-0.4); Bilirubin,Indirect 0.1 mg/dL (0.0-0.9); Bilirubin,Total 0.3 mg/dl (0.2-1.3); Bilirubin,Unconjugated 0.2 mg/dL (0.0-1.1); Blood Urea Nitrogen 15 mg/dl (9-20); Calcium 9.3 mg/dl (8.4-10.2); Carbon Dioxide 34 mmol/L (22.0-30.0); Chloride 103 mmol/L (98-107); Chol/HDL Ratio 4.2 (1-3.5); Cholesterol 146 mg/dl (140-200); Estimated Glomerular Filt Rate 69 ml/min (>60); GFR (African American) 83 ML/MIN (>60); Glucose 79 mg/dl (74-100); HDL Cholesterol 35 mg/dl (40-60); Magnesium 2.1 mg/dl (1.6-2.3); Potassium 4.4 mmoL/L (3.5-5.1); Sodium 140 mmol/L (136-145); Total Protein,Serum 7.1 g/dl (6.3-8.2); Triglycerides 174 mg/dl (30-150); VLDL Cholesterol 35 mg/dL (0-40)
[2023-12-19 17:49] LABS: Direct LDL Cholesterol 71.53 mg/dL (100-129)
[2023-12-19 17:55] LABS: Free T4 (Free Thyroxine) 0.83 ng/dl (0.78-2.19)
[2023-12-19 18:11] LABS: Thyroid Stimulating Hormone 1.26 uIU/mL (0.465-4.68)
== END 2023-12-19 23:59 ==
LOC: LAB 16:27
PROVIDERS: PCP Family Medicine; Visit Provider Physician Assistant
DX: E78.5 Hyperlipidemia, unspecified (principal); I11.9 Hypertensive heart disease without heart failure; I25.10 Atherosclerotic heart disease of native coronary artery without angina pectoris; R94.31 Abnormal electrocardiogram [ECG] [EKG]; Z95.5 Presence of coronary angioplasty implant and graft; Z87.891 Personal history of nicotine dependence
CPT/HCPCS: 36415; 80048; 80061; 80076; 83735; 84439; 84443; 85025

== ENCOUNTER 2024-06-08 15:30 | Outpatient (CLI) | payer BC, SELFPAY ==
[2024-06-08 15:57] LABS: Basophils # 0.1 K/mm3 (0-0.2); Basophils % 0.7 % (0.1-2.0); Eosinophils # 0.1 K/mm3 (0.0-0.4); Hematocrit 46.4 % (42.0-52.0); Hemoglobin 15.2 g/dL (14.1-18.0); Lymphocytes # 2.1 K/mm3 (0.7-4.5); Lymphocytes % 25.2 % (10-50); Mean Corpuscular HGB Conc 32.7 g/dL (31.8-35.4); Mean Corpuscular Hemoglobin 29.1 pg (27.0-31.2); Mean Platelet Volume 9.6 fl (7.4-10.4); Monocytes # 0.4 K/mm3 (0.1-1.0); Neutrophils # 5.7 K/mm3 (1.8-7.8); Neutrophils % 68.1 % (37.0-80.0); Platelet Count 159 K/mm3 (142-424); Red Blood Count 5.21 M/mm3 (4.60-6.20); Red Cell Distribution Width 13.8 % (11.5-17.5); White Blood Count 8.4 K/mm3 (4.8-10.8)
[2024-06-08 17:03] LABS: Albumin Level 4.2 g/dl (3.5-5.0); Chloride 104 mmol/L (98-107); Potassium 4.1 mmoL/L (3.5-5.1); Sodium 141 mmol/L (136-145)
[2024-06-08 17:05] LABS: Blood Urea Nitrogen 19 mg/dl (9-20); Estimated Glomerular Filt Rate 62 ml/min (>60); GFR (African American) 75 ML/MIN (>60)
[2024-06-08 17:06] LABS: Alanine Aminotransferase 57 U/L (12-78); Alkaline Phosphatase 87 U/L (38-126); Anion Gap 10.1 mEq/L (5-15); Aspartate Amino Transferase 42 U/L (17-59); Bilirubin,Direct 0.3 mg/dl (0.0-0.4); Bilirubin,Indirect 0.1 mg/dL (0.0-0.9); Bilirubin,Total 0.4 mg/dl (0.2-1.3); Bilirubin,Unconjugated 0.1 mg/dL (0.0-1.1); Calcium 9.2 mg/dl (8.4-10.2); Carbon Dioxide 31 mmol/L (22.0-30.0); Cholesterol 133 mg/dl (140-200); Glucose 96 mg/dl (74-100); HDL Cholesterol 45 mg/dl (40-60); Total Protein,Serum 7.3 g/dl (6.3-8.2); Triglycerides 111 mg/dl (30-150); VLDL Cholesterol 22 mg/dL (0-40)
[2024-06-08 17:23] LABS: Free T4 (Free Thyroxine) 0.89 ng/dl (0.78-2.19)
[2024-06-08 17:39] LABS: Thyroid Stimulating Hormone 2.15 uIU/mL (0.465-4.68)
== END 2024-06-08 23:59 | disposition home or self-care (01) ==
LOC: LAB 15:32
PROVIDERS: PCP Family Medicine; Visit Provider Nurse Practitioner
DX: I11.9 Hypertensive heart disease without heart failure (principal); I25.118 Atherosclerotic heart disease of native coronary artery with other forms of angina pectoris; E78.5 Hyperlipidemia, unspecified; R94.31 Abnormal electrocardiogram [ECG] [EKG]; R06.00 Dyspnea, unspecified; K21.9 Gastro-esophageal reflux disease without esophagitis; Z95.5 Presence of coronary angioplasty implant and graft; Z87.891 Personal history of nicotine dependence
CPT/HCPCS: 36415; 80048; 80061; 80076; 83735; 84439; 84443; 85025

== ENCOUNTER 2025-06-07 15:45 | Outpatient (CLI) | payer BC, SELFPAY ==
[2025-06-07 16:23] LABS: Hematocrit 43.4 % (42.0-52.0); Hemoglobin 14.6 g/dL (14.1-18.0); Immature Granulocytes % 0.3 %; Mean Corpuscular HGB Conc 33.6 g/dL (31.8-35.4); Mean Corpuscular Hemoglobin 28.3 pg (27.0-31.2); Mean Corpuscular Volume 84.3 fl (80-94); Nucleated Red Blood Cells % 0 %; Platelet Count 144 K/mm3 (142-424); Red Blood Count 5.15 M/mm3 (4.60-6.20); Red Cell Distribution Width-SD 39.4 fL; White Blood Count 6.3 K/mm3 (4.8-10.8)
[2025-06-07 20:30] LABS: Albumin Level 4.3 g/dl (3.5-5.0); Chloride 102 mmol/L (98-107); Potassium 4.5 mmoL/L (3.5-5.1); Sodium 141 mmol/L (136-145)
[2025-06-07 20:33] LABS: Alkaline Phosphatase 104 U/L (38-126); Bilirubin,Direct 0.2 mg/dl (0.0-0.4); Bilirubin,Indirect 0.3 mg/dL (0.0-0.9); Bilirubin,Total 0.5 mg/dl (0.2-1.3); Bilirubin,Unconjugated 0.3 mg/dL (0.0-1.1); Calcium 9.5 mg/dl (8.4-10.2); Cholesterol 95 mg/dl (140-200); Glucose 92 mg/dl (74-100); Total Protein,Serum 7.1 g/dl (6.3-8.2); Triglycerides 87 mg/dl (30-150)
[2025-06-07 20:34] LABS: HDL Cholesterol 36 mg/dl (40-60); Magnesium 2.0 mg/dl (1.6-2.3)
[2025-06-07 20:41] LABS: Free T4 (Free Thyroxine) 1.07 ng/dl (0.78-2.19)
[2025-06-07 20:49] LABS: Alanine Aminotransferase 48 U/L (12-78); Aspartate Amino Transferase 38 U/L (17-59); Blood Urea Nitrogen 15 mg/dl (9-20); Creatinine,Serum 1.20 mg/dl (0.66-1.25); Estimated Glomerular Filt Rate 62 ml/min (>60); GFR (African American) 75 ML/MIN (>60)
[2025-06-07 20:50] LABS: Anion Gap 12.5 mEq/L (5-15); Carbon Dioxide 31 mmol/L (22.0-30.0)
[2025-06-07 21:05] LABS: Thyroid Stimulating Hormone 2.10 uIU/mL (0.465-4.68)
== END 2025-06-07 23:59 | disposition home or self-care (01) ==
LOC: LAB 15:45
PROVIDERS: PCP Family Medicine; Visit Provider Nurse Practitioner
DX: E78.5 Hyperlipidemia, unspecified (principal); I10 Essential (primary) hypertension; I25.10 Atherosclerotic heart disease of native coronary artery without angina pectoris; Z95.5 Presence of coronary angioplasty implant and graft
CPT/HCPCS: 36415; 80048; 80061; 80076; 83735; 84439; 84443; 85025